=== PATIENT | female | born 1990 | race African-American/Black ===

== ENCOUNTER 2021-11-25 12:32 | Emergency (ER) | payer OTHER, SELFPAY ==
[2021-11-25 13:06] LABS: Bilirubin Neg (Negative); Blood, Urine 250 (Negative); Clarity Cloudy (Clear); Glucose, Urine (Dipstick) Normal (Negative); Ketone, Urine Negative (Negative); Leukocyte 500 (Negative); Nitrite Negative (Negative); Protein, Urine (Dipstick) 100 mg/dl (Neg-Trace); Specific Gravity, Urine 1.015 (1.005-1.030); Urobilinogen Normal mg/dL (Less than 2); pH, Urine 6.5 (5.0-9.0)
[2021-11-25 13:09] LABS: Pregnancy Test - Urine (BHCG) Negative (Negative)
[2021-11-25 13:10] LABS: Pregu Control Background? CLEAR/WHITE (CLR/WHITE); Pregu Control Bar Appear? YES (CONTROL BAR); Specific Gravity 1.015 (1.002-1.036)
[2021-11-25 13:21] LABS: Bacteria/HPF 2+ HPF (None Seen); RBC/HPF Greater than 50 HPF (0-3); WBC/HPF 21-50 HPF (0-3)
[2021-11-25 13:22] LABS: Mucous/LPF 3+ LPF (<2+)
[2021-11-25] MEDS ORDERED: Ibuprofen 200 MG TAB ONE (13:44)
== END 2021-11-25 13:57 | disposition home or self-care (01) ==
LOC: CSHERS 12:32
DX: N39.0 Urinary tract infection, site not specified (principal); J02.9 Acute pharyngitis, unspecified
CPT/HCPCS: 81003; 81015; 81025; 87077; 87081; 87086; 87430; 99283